=== PATIENT | female | born 1985 | race African-American/Black ===

== ENCOUNTER 2024-11-12 21:19 | Emergency (ER) | payer BC, OTHER ==
[~2024-11-12] VITALS: Ht 160 cm; Wt 67.9 kg
--- NOTE | 2024-11-12 22:24 | DVH ---
EXAM: CT CERVICAL WITHOUT CONTRAST INDICATION: neck pain EXAM DATE: 11/12/2024 09:42 PM COMPARISON: None TECHNIQUE: CT of the cervical spine without intravenous contrast. Radiation Dose Information: CT Dose: CTDI volume is 21 mGy. Dose-length product is 481 mGy*cm FINDINGS: The cervical alignment is intact. No acute cervical spine fracture is identified. The vertebral bod y heights are intact. There is a 1.1 cm osseous lesion in the prevertebral soft tissue at level of C 1-C2 with associated soft tissue thickening at this level. The craniocervical junction appears inta ct. No significant degenerative changes are identified. There is no prevertebral soft tissue swelli ng. IMPRESSION: No evidence of acute cervical spine fracture or malalignment. 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 END IMPRESSION:
[2024-11-12 22:30] VITALS: BP 128/87; PULSE 96; RESP 16; TEMP 98.5; O2SAT 97
[2024-11-12] MEDS: methylPREDNISolone SOD SUCC 125 MG/2 ML VL IM ONE (22:34)
[2024-11-12] MEDS: KETOROLAC TROMETH 30 MG/ML 1ML VIAL IM ONE (22:35)
[2024-11-12] MEDS ORDERED: IBUP-1455 PO (22:41)
[2024-11-12] MEDS ORDERED: CYCL-837 PO (22:41)
--- NOTE | 2024-11-12 22:42 | ED.PDOC ---
Back pain HPI HPI Comments 39-year-old female complaining of neck pain for the last two days. States she woke up with a stiff neck. Says the pain has not improved over the last two days. Having hard time turning her head because the pain is getting worse. Pain has causing headaches. No trauma to the area no prior history of neck problems. Ibuprofen does not help. Chief Complaint: Neck Pain Time Seen by MD: 21:22 Reviewed Notes: Nurses Notes Allergies: Coded Allergies: NO KNOWN ALLERGIES (Unverified , 11/12/24) Information Source: Patient Mode of Arrival: Ambulatory Past Medical History PAST MEDICAL HISTORY: Denies Surgical History: Denies all surgeries LIVER TRIMMER History: No Pertinent LIVER TRIMMER History Constitutional: denies: chills, diaphoresis, fatigue, fever, malaise, sweats, weakness, others EENTM: denies: blurred vision, double vision, ear bleeding, ear discharge, ear drainage, ear pain, ear ringing, eye pain, eye redness, hearing loss, mouth pain, mouth swelling, nasal discharge, nose bleeding, nose congestion, nose pain, photophobia, tearing, throat pain, throat swelling, voice changes, others Respiratory: denies: cough, hemoptysis, orthopnea, SOB at rest, shortness of breath, SOB with excertion, stridor, wheezing, others Cardiovascular: denies: chest pain, dizzy spells, diaphoresis, Dyspnea on exertion, edema, irregular heart beat, left arm pain, lightheadedness, palpitations, PND, syncope, others Gastrointestinal: denies: abdomen distended, abdominal pain, blood streaked bowels, constipated, diarrhea, dysphagia, difficulty swallowing, hematemesis, melena, nausea, poor appetite, poor fluid intake, rectal bleeding, rectal pain, vomiting, others Genitourinary: denies: abnormal vagina bleeding, burning, dyspareunia, dysuria, flank pain, frequency, hematuria, incontinence, pain, , vagina discharge, urgency, others Neurological: denies: dizziness, fainting, headache, left sided numbness, left sided weakness, numbness, paresthesia, pre-existing deficit, right sided numbness, right sided weakness, seizure, speech problems, tingling, tremors, weakness, others Musculoskeletal: reports: joint swelling, muscle pain, neck pain; denies: back pain, gout, joint pain, muscle stiffness, others Physical Exam General Appearance: No Apparent Distress, Normal HEENT: Normal ENT Inspection, Pharynx Normal, TMs Normal Neck: Full Range of Motion, Normal Inspection, Other (Limited range of motion cervical spine due to pain.) Respiratory: Chest Non-Tender, Lungs Clear, No Accessory Muscle Use, No Respiratory Distress, Normal Breath Sounds Cardiovascular: No Edema, No JVD, No Murmur, No Gallop, Normal Peripheral Pulses, Regular Rate/Rhythm Breast Exam: Deferred Gastrointestinal: No Organomegaly, Non Tender, No Pulsatile Mass, Normal Bowel Sounds, Soft Genitalia: Deferred Pelvic: Deferred Rectal: Deferred Extremities: No calf tenderness, Normal capillary refill, Normal inspection, Normal range of motion, Non-tender, No pedal edema Musculoskeletal : Apperance: Normal Neurologic: Alert, electronic maintenance supervisor II-XII nml as Tested, No Motor Deficits, Normal Affect, Normal Mood, No Sensory Deficits Cerebellar Function: Normal Reflexes: Normal Skin: Dry, Normal Color, Warm Lymphatic: No Adenopathy Was a procedure done? Was a procedure done?: No Back Pain Differential Dx Differential Diagnosis: Appendicitis, Fracture, Musculoskeletal Pain X-Ray, Labs, Meds, VS Vital Signs Date Time Temp Pulse Resp B/P (MAP) Pulse Ox O2 Delivery O2 Flow Rate FiO2 11/12/24 21:35 99.2 107 18 134/89 (104) 99 Current Medications Medications (Trade) Dose Ordered Sig/Slick Route Start Time Stop Time Status Last Admin Ketorolac Tromethamine (Toradol Injection) 30 mg ONCE ONCE IM 11/12/24 21:45 11/12/24 21:46 DC 11/12/24 22:35 Methylprednisolone Sodium Succinate (Solu Medrol) 125 mg ONCE ONCE IM 11/12/24 21:45 11/12/24 21:46 DC 11/12/24 22:34 X-Ray, Labs, Meds, VS Comment Imaging: X-rays and CT scans were reviewed and interpreted by this provider, imaging shows no fractures and no pathological disease. Pending radiology review. Laboratory: Labs reviewed and interpreted by this provider. No significant abnormalities noted. Patient has prior medical visits reviewed. Med reconciliation performed Vital signs reviewed Time of 1ST Reevaluation: 22:41 Reevaluation 1ST: Improved Patient Education/Counseling: Diagnosis, Treatment, Need For Follow Up (Patient advised to follow-up in the emergency room in the next 24 to 48 hours if symptoms do not improve. Advised follow-up with PCP in the next 3 to 5 days. Patient verbalized understanding. ) Family Education/Counseling: Diagnosis Departure 1 Departure Time of Disposition: 22:40 Impression: Primary Impression: Torticollis Disposition: HOME / SELF CARE / HOMELESS Condition: Fair e-Prescriptions Cyclobenzaprine Hcl (Cyclobenzaprine Hcl) 5 Mg Tab 1 TAB PO TID PRN, #30 TAB Prov: AUREA GREENE 11/12/24 Ibuprofen Micronized (Ibuprofen) 800 Mg Tab 800 MG PO TID PRN, #40 TAB Prov: AUREA GREENE 11/12/24 Discharged With: Self Critical Care Note Critical Care Time?: No Stability Stability form required: No Heart Score Heart Score: Heart Score Response (Comments) Value History N/A 0 EKG N/A 0 Age N/A 0 Risk Factors N/A 0 Troponin N/A 0 Total 0 AUREA GREENE Nov 12, 2024 22:42
== END 2024-11-12 22:54 | disposition home or self-care (01) ==
LOC: ER 21:19
DX: M43.6 Torticollis (principal)
CPT/HCPCS: 72125; 96372; 99285; J1885; J2919